=== PATIENT | male | born 1965 | race Hispanic/Latino ===

== ENCOUNTER → 2019-07-05 | Outpatient (CLI) | payer BC ==
[~2019-07-05] MED LIST: ATORVASTATIN CA20 MG PO; LEVOTHYROXINE75 MCG PO; MULTI-VITAMIN1 EACH PO; SERTRALINE HCL50 MG PO; URSODIOL300 MG PO
--- NOTE | 2019-07-05 11:04 | Diagnostic Imaging Report ---
EXAM: US ABDOMEN COMPLETE DATE: 07/05/2019 7:48 AM INDICATION: Fatty liver COMPARISON: None FINDINGS: The pancreas is partially secured by adjacent bowel gas. The visualized portion appears unremarkable. The liver is enlarged measuring 22.2 cm in length. The hepatic parenchyma is diffusely increased in echogenicity which can be seen in the setting of fatty infiltration. No focal hepatic abnormality is identified. The main portal vein is patent with antegrade flow and diameter of 1.0 cm, within normal limits. The gallbladder is unremarkable. There is no evidence for cholelithiasis, gallbladder wall thickening, or pericholecystic fluid. There is no intra or extra hepatic biliary ductal dilatation. The common bile duct measures 4 mm. Sonographic Amato's sign is negative. The spleen is normal in size measuring 11.5 cm in length and demonstrates an unremarkable sonographic appearance. The kidneys are normal in size measuring 13.3 cm in length on the right and 11.7 cm in length on the left. Cortical thickness and echogenicity are within normal limits. There is no evidence for solid renal mass, hydronephrosis, or shadowing calculi. The visualized IVC is unremarkable. The distal aorta is not visualized secondary to overlying bowel gas. The proximal and mid aorta is normal in caliber. There is no ascites present. IMPRESSION: Hepatomegaly and sonographic findings suggestive of hepatic steatosis. Signed by: Dr. Michael Arevalo MD on 07/05/2019 11:01 AM
== END ==
LOC: US 07:44
PROVIDERS: ATTEND Internal Medicine Gastroenterology
DX: K76.0 Fatty (change of) liver, not elsewhere classified (principal); Z86.010 Personal history of colon polyps; Z80.0 Family history of malignant neoplasm of digestive organs
CPT/HCPCS: 76700